=== PATIENT | female | born 1980 | race African-American/Black ===

== ENCOUNTER 2016-11-12 01:15 | Emergency (ER) | payer MEDICARE, MEDICAID ==
[~2016-11-12] VITALS: Ht 165.1 cm; Wt 65.0 kg
[~2016-11-12 01:15] MED LIST: AMLO5TAB4 PO; ESOM40CA PO; GABA-531 PO
[2016-11-12] MEDS ORDERED: SODIUM CHLORIDE 0.9% 1,000 ML IV ONE (02:35)
[2016-11-12 03:00] LABS: BASOPHILS % 0.7 % (0.0-2.0); EOSINOPHILS % 2.3 % (0.0-5.0); HEMATOCRIT. 28.1 % (36.0-48.0); LYMPHOCYTES % 39.8 % (20.0-50.0); MEAN CORPUSCULAR HEMOGLOBIN 26.3 pg (28.0-32.0); MONOCYTES % 7.8 % (2.0-8.0); NEUTROPHILS % 49.4 % (40.0-76.0); PLATELET 317 x1000/uL (130-400); RED BLOOD CELL COUNT 3.43 mill/uL (4.2-5.4); RED CELL DISTRIBUTION WIDTH 21.6 % (11.6-14.6)
[2016-11-12 03:09] LABS: CARBON DIOXIDE 25 mEq/L (21-32); CHLORIDE 112 mEq/L (98-107); ETHANOL BLOOD < 10 mg/dL
[2016-11-12 03:57] LABS: CLARITY URINE CLEAR (CLEAR); COLOR URINE YELLOW (YELLOW); GLUCOSE URINE TRACE (NEGATIVE); KETONES URINE NEGATIVE (NEGATIVE); LEUKOCYTE ESTERASE URINE NEGATIVE (NEGATIVE); NITRITE URINE NEGATIVE (NEGATIVE); OCCULT BLOOD URINE NEGATIVE (NEGATIVE); PH URINE 6.5 (4.5-8.0); PROTEIN URINE NEGATIVE (NEGATIVE); SPECIFIC GRAVITY URINE 1.024 (1.005-1.030)
[2016-11-12 04:22] LABS: *AMPHETAMINES SCREEN URINE NEGATIVE (NEGATIVE); *BARBITURATES SCREEN URINE NEGATIVE (NEGATIVE); *COCAINE SCREEN URINE NEGATIVE (NEGATIVE); CANNABINOID URINE SCREEN NEGATIVE (NEGATIVE); METHADONE URINE SCREEN NEGATIVE (NEGATIVE); PHENCYCLIDINE URINE SCREEN NEGATIVE (NEGATIVE)
[2016-11-12 04:30] LABS: *BENZODIAZEPINES SCREEN URINE PRESUMTIVE POSITIVE (NEGATIVE); OPIATES URINE SCREEN PRESUMTIVE POSITIVE (NEGATIVE)
[2016-11-12] MEDS ORDERED: KETOROLAC 30MG/ML VIAL IV ONE (08:00)
[2016-11-12 08:59] LABS: HCG SCREEN NEGATIVE
[2016-11-12 09:34] VITALS: BP 127/84
== END 2016-11-12 10:16 | disposition home or self-care (01) ==
LOC: ER 01:19
DX: T40.2X1A Poisoning by other opioids, accidental (unintentional), initial encounter (principal); F11.129 Opioid abuse with intoxication, unspecified; R53.83 Other fatigue; Y92.481 Parking lot as the place of occurrence of the external cause; R03.0 Elevated blood-pressure reading, without diagnosis of hypertension; M25.552 Pain in left hip; G89.29 Other chronic pain; D53.9 Nutritional anemia, unspecified; R94.31 Abnormal electrocardiogram [ECG] [EKG]; Z96.642 Presence of left artificial hip joint; Z88.0 Allergy status to penicillin; Z88.8 Allergy status to other drugs, medicaments and biological substances; Z98.890 Other specified postprocedural states
CPT/HCPCS: 36415; 51701; 73502; 80053; 80305; 80307; 80329; 81001; 84703; 85025; 93005; 96361; 96374; 99285; G0482; J1885; J7030

== ENCOUNTER 2017-02-18 15:21 | Emergency (ER) | payer MEDICARE, MEDICAID ==
[~2017-02-18] VITALS: Ht 154.9 cm; Wt 61.0 kg
[2017-02-18] MEDS ORDERED: IBUPROFEN 600MG TABLET PO ONE (20:30)
[2017-02-18] MEDS ORDERED: TRAMADOL 50MG TABLET PO ONE (22:15)
[2017-02-18] MEDS ORDERED: GENTAMICIN SULF 40MG/ML 2ML VIAL IM ONE (22:15)
[2017-02-18] MEDS ORDERED: AZITHROMYCIN 500 MG TABLET PO ONE (22:15)
[2017-02-18 22:30] VITALS: BP 147/82
[2017-02-18 23:12] LABS: CLARITY URINE CLEAR (CLEAR); COLOR URINE YELLOW (YELLOW); GLUCOSE URINE NEGATIVE (NEGATIVE); KETONES URINE TRACE (NEGATIVE); LEUKOCYTE ESTERASE URINE TRACE (NEGATIVE); NITRITE URINE NEGATIVE (NEGATIVE); OCCULT BLOOD URINE NEGATIVE (NEGATIVE); PH URINE 5.5 (4.5-8.0); PROTEIN URINE NEGATIVE (NEGATIVE); SPECIFIC GRAVITY URINE 1.043 (1.005-1.030)
== END 2017-02-18 23:10 | disposition home or self-care (01) ==
LOC: ER 21:30
DX: M25.552 Pain in left hip (principal); N39.0 Urinary tract infection, site not specified; Z20.2 Contact with and (suspected) exposure to infections with a predominantly sexual mode of transmission; Z88.0 Allergy status to penicillin; Z98.1 Arthrodesis status; W18.2XXA Fall in (into) shower or empty bathtub, initial encounter; Y93.E1 Activity, personal bathing and showering; Y92.012 Bathroom of single-family (private) house as the place of occurrence of the external cause
CPT/HCPCS: 72170; 81001; 81025; 87210; 96372; 99285; J1580; 87491; 87591

== ENCOUNTER 2017-06-30 12:58 | Emergency (ER) | payer MEDICARE, MEDICAID ==
[~2017-06-30] VITALS: Ht 165.1 cm; Wt 80.0 kg
[2017-06-30] MEDS ORDERED: DEXAMETHASONE 10 MG/ML VIAL IM ONE (15:30)
[2017-06-30] MEDS ORDERED: KETOROLAC 60MG/2ML VIAL IM ONE (15:30)
[2017-06-30] MEDS ORDERED: LORAZEPAM 1MG TABLET PO ONE (15:30)
[2017-06-30 15:34] VITALS: BP 144/98
== END 2017-06-30 15:34 | disposition left against medical advice (07) ==
LOC: ER 13:12
DX: M79.605 Pain in left leg (principal); I10 Essential (primary) hypertension; M25.552 Pain in left hip; Z96.642 Presence of left artificial hip joint; F16.10 Hallucinogen abuse, uncomplicated; Z88.0 Allergy status to penicillin; Z79.899 Other long term (current) drug therapy; Z83.3 Family history of diabetes mellitus
CPT/HCPCS: 96372; 99284; J1100; J1885

== ENCOUNTER 2017-07-11 12:55 | Emergency (ER) | payer MEDICARE, MEDICAID ==
[~2017-07-11] VITALS: Ht 160 cm; Wt 55.0 kg
[2017-07-11] MEDS ORDERED: NALOXONE HCL 1 MG/ML 2ML VIAL ONE (13:09)
[2017-07-11] MEDS ORDERED: NALOXONE HCL 1 MG/ML 2ML VIAL IV ONE (13:15)
[2017-07-11] MEDS ORDERED: SODIUM CHLORIDE 0.9% 500 ML IV ONE (16:00)
[2017-07-11 16:29] LABS: BASOPHILS % 1.6 % (0.0-2.0); EOSINOPHILS % 1.6 % (0.0-5.0); HEMATOCRIT. 38.2 % (36.0-48.0); HEMOGLOBIN. 12.1 g/dL (12.0-16.0); LYMPHOCYTES % 52.8 % (20.0-50.0); MEAN CORPUSCULAR HEMOGLOBIN 29.5 pg (28.0-32.0); MEAN CORPUSCULAR VOLUME 93.3 fL (81.0-99.0); MEAN PLATELET VOLUME 8.8 fl (7.4-10.4); MONOCYTES % 8.6 % (2.0-8.0); NEUTROPHILS % 35.4 % (40.0-76.0); PLATELET 295 x1000/uL (130-400); RED CELL DISTRIBUTION WIDTH 19.8 % (11.6-14.6)
[2017-07-11 16:36] LABS: INR 1.1
[2017-07-11 16:43] LABS: CARBON DIOXIDE 24 mEq/L (21-32); CHLORIDE 108 mEq/L (98-107); TROPONIN I < 0.02 ng/mL (0.00-0.04)
[2017-07-11 18:16] LABS: HCG SCREEN NEGATIVE
[2017-07-11 20:38] VITALS: BP 130/81
== END 2017-07-11 20:40 | disposition home or self-care (01) ==
LOC: ER 13:10
DX: T40.0X1A Poisoning by opium, accidental (unintentional), initial encounter (principal); E87.8 Other disorders of electrolyte and fluid balance, not elsewhere classified; E86.0 Dehydration; D70.9 Neutropenia, unspecified; R41.82 Altered mental status, unspecified; I10 Essential (primary) hypertension; G35 Multiple sclerosis; F16.10 Hallucinogen abuse, uncomplicated; D64.9 Anemia, unspecified; Z88.0 Allergy status to penicillin; Z96.642 Presence of left artificial hip joint; Z79.899 Other long term (current) drug therapy; Y92.89 Other specified places as the place of occurrence of the external cause
CPT/HCPCS: 36415; 70450; 71045; 80053; 82962; 83036; 83880; 84484; 84703; 85025; 85610; 93005; 96361; 96374; 99285; J2310; J7040

== ENCOUNTER 2017-10-11 03:14 | Emergency (ER) | payer MEDICARE, MEDICAID ==
[~2017-10-11] VITALS: Ht 149.9 cm; Wt 61.0 kg
[2017-10-11] MEDS ORDERED: ACETAMINOPHEN 325MG TABLET PO ONE (04:15)
[2017-10-11 04:52] LABS: BASOPHILS % 1.3 % (0.0-2.0); EOSINOPHILS % 0.6 % (0.0-5.0); HEMATOCRIT. 36.4 % (36.0-48.0); HEMOGLOBIN. 12.3 g/dL (12.0-16.0); LYMPHOCYTES % 40.7 % (20.0-50.0); MEAN CORPUSCULAR HEMOGLOBIN 32.1 pg (28.0-32.0); MEAN CORPUSCULAR VOLUME 94.6 fL (81.0-99.0); MEAN PLATELET VOLUME 8.3 fl (7.4-10.4); MONOCYTES % 7.6 % (2.0-8.0); NEUTROPHILS % 49.8 % (40.0-76.0); PLATELET 446 x1000/uL (130-400); RED BLOOD CELL COUNT 3.85 mill/uL (4.2-5.4); RED CELL DISTRIBUTION WIDTH 17.6 % (11.6-14.6)
[2017-10-11 04:56] LABS: CHLORIDE 106 mEq/L (98-107)
[2017-10-11 05:00] LABS: ETHANOL BLOOD < 10 mg/dL
[2017-10-11] MEDS ORDERED: IBUPROFEN 600MG TABLET PO ONE (10:15)
[2017-10-11 11:48] LABS: CLARITY URINE CLOUDY (CLEAR); COLOR URINE DARK YELLOW (YELLOW); KETONES URINE NEGATIVE (NEGATIVE); LEUKOCYTE ESTERASE URINE NEGATIVE (NEGATIVE); NITRITE URINE NEGATIVE (NEGATIVE); OCCULT BLOOD URINE NEGATIVE (NEGATIVE); PROTEIN URINE NEGATIVE (NEGATIVE); SPECIFIC GRAVITY URINE 1.034 (1.005-1.030); UROBILINOGEN URINE 0.2 E.U./dL (0.2-1.0)
[2017-10-11 12:30] LABS: *AMPHETAMINES SCREEN URINE NEGATIVE (NEGATIVE); *BARBITURATES SCREEN URINE NEGATIVE (NEGATIVE); *COCAINE SCREEN URINE NEGATIVE (NEGATIVE); METHADONE URINE SCREEN NEGATIVE (NEGATIVE); PHENCYCLIDINE URINE SCREEN NEGATIVE (NEGATIVE)
[2017-10-11 12:31] LABS: CANNABINOID URINE SCREEN NEGATIVE (NEGATIVE)
[2017-10-11 12:34] LABS: *BENZODIAZEPINES SCREEN URINE PRESUMTIVE POSITIVE (NEGATIVE); OPIATES URINE SCREEN PRESUMTIVE POSITIVE (NEGATIVE)
[2017-10-11 15:00] VITALS: BP 130/80
== END 2017-10-11 17:59 | disposition home or self-care (01) ==
LOC: ER 03:14
DX: G89.29 Other chronic pain (principal); F22 Delusional disorders; I10 Essential (primary) hypertension; D64.9 Anemia, unspecified; F19.10 Other psychoactive substance abuse, uncomplicated; Z96.649 Presence of unspecified artificial hip joint; Z88.0 Allergy status to penicillin
CPT/HCPCS: 36415; 80053; 80305; 81003; 81025; 85025; 99284; G0482

== ENCOUNTER 2017-10-22 08:51 | Emergency (ER) | payer MEDICARE, MEDICAID ==
[~2017-10-22] VITALS: Ht 165.1 cm; Wt 63.0 kg
[2017-10-22] MEDS ORDERED: IBUPROFEN 800MG TABLET PO ONE (09:45)
[2017-10-22 10:00] LABS: HEMATOCRIT. 37.6 % (36.0-48.0); HEMOGLOBIN. 12.4 g/dL (12.0-16.0); MEAN CORPUSCULAR HEMOGLOBIN 31.5 pg (28.0-32.0); MEAN CORPUSCULAR VOLUME 95.4 fL (81.0-99.0); RED BLOOD CELL COUNT 3.94 mill/uL (4.2-5.4); RED CELL DISTRIBUTION WIDTH 16.1 % (11.6-14.6)
[2017-10-22] MEDS ORDERED: ACETAMINOPHEN 325MG TABLET PO ONE (10:00)
[2017-10-22 10:05] LABS: CHLORIDE 107 mEq/L (98-107)
[2017-10-22 10:19] LABS: PLATELET ESTIMATE NORMAL
[2017-10-22 10:20] LABS: PLATELET 237 x1000/uL (130-400)
[2017-10-22 10:49] LABS: *AMPHETAMINES SCREEN URINE NEGATIVE (NEGATIVE); *BARBITURATES SCREEN URINE NEGATIVE (NEGATIVE); *COCAINE SCREEN URINE NEGATIVE (NEGATIVE)
[2017-10-22 10:50] LABS: CANNABINOID URINE SCREEN NEGATIVE (NEGATIVE); METHADONE URINE SCREEN NEGATIVE (NEGATIVE); PHENCYCLIDINE URINE SCREEN NEGATIVE (NEGATIVE)
[2017-10-22 10:53] LABS: *BENZODIAZEPINES SCREEN URINE PRESUMTIVE POSITIVE (NEGATIVE); OPIATES URINE SCREEN PRESUMTIVE POSITIVE (NEGATIVE)
[2017-10-22] MEDS ORDERED: LORAZEPAM 0.5MG TABLET PO ONE (11:15)
[2017-10-22 12:00] VITALS: BP 151/93
== END 2017-10-22 12:27 | disposition left against medical advice (07) ==
LOC: ER 09:10
DX: F22 Delusional disorders (principal); M25.552 Pain in left hip; I10 Essential (primary) hypertension; F16.10 Hallucinogen abuse, uncomplicated; Z96.649 Presence of unspecified artificial hip joint; Z88.0 Allergy status to penicillin; W18.30XA Fall on same level, unspecified, initial encounter; Y93.89 Activity, other specified; Y92.89 Other specified places as the place of occurrence of the external cause; Y99.8 Other external cause status
CPT/HCPCS: 36415; 73502; 80048; 80305; 81025; 85025; 99285

== ENCOUNTER 2017-10-23 01:41 | Emergency (ER) | payer MEDICARE, MEDICAID ==
[~2017-10-23] VITALS: Ht 160 cm; Wt 59.0 kg
[2017-10-23 07:35] LABS: EOSINOPHILS % 1.3 % (0.0-5.0); HEMATOCRIT. 37.5 % (36.0-48.0); HEMOGLOBIN. 12.5 g/dL (12.0-16.0); LYMPHOCYTES % 30.4 % (20.0-50.0); MEAN CORPUSCULAR HEMOGLOBIN 31.9 pg (28.0-32.0); MEAN CORPUSCULAR VOLUME 95.5 fL (81.0-99.0); MEAN PLATELET VOLUME 7.8 fl (7.4-10.4); MONOCYTES % 10.1 % (2.0-8.0); NEUTROPHILS % 57.2 % (40.0-76.0); PLATELET 278 x1000/uL (130-400); RED BLOOD CELL COUNT 3.92 mill/uL (4.2-5.4)
[2017-10-23 07:37] LABS: CHLORIDE 104 mEq/L (98-107)
[2017-10-23 07:38] LABS: CLARITY URINE CLEAR (CLEAR); COLOR URINE YELLOW (YELLOW); KETONES URINE 1+ (NEGATIVE); LEUKOCYTE ESTERASE URINE NEGATIVE (NEGATIVE); NITRITE URINE NEGATIVE (NEGATIVE); OCCULT BLOOD URINE NEGATIVE (NEGATIVE); PROTEIN URINE NEGATIVE (NEGATIVE)
[2017-10-23 07:44] LABS: ETHANOL BLOOD < 10 mg/dL
[2017-10-23 07:54] LABS: *AMPHETAMINES SCREEN URINE NEGATIVE (NEGATIVE)
[2017-10-23 07:55] LABS: *BARBITURATES SCREEN URINE NEGATIVE (NEGATIVE); *COCAINE SCREEN URINE NEGATIVE (NEGATIVE); METHADONE URINE SCREEN NEGATIVE (NEGATIVE)
[2017-10-23 07:56] LABS: CANNABINOID URINE SCREEN NEGATIVE (NEGATIVE); PHENCYCLIDINE URINE SCREEN NEGATIVE (NEGATIVE)
[2017-10-23 08:09] LABS: *BENZODIAZEPINES SCREEN URINE PRESUMTIVE POSITIVE (NEGATIVE); OPIATES URINE SCREEN PRESUMTIVE POSITIVE (NEGATIVE)
[2017-10-23] MEDS ORDERED: IBUPROFEN 600MG TABLET PO ONE (09:00)
[2017-10-23] MEDS ORDERED: LORAZEPAM 1MG TABLET PO ONE (09:00)
[2017-10-23 09:45] VITALS: BP 144/88
[2017-10-23] MEDS ORDERED: HYDROCODONE/ACETAMINOPHEN 5/325MG TABLET PO ONE (10:30)
== END 2017-10-23 11:16 | disposition left against medical advice (07) ==
LOC: ER 01:41
DX: F20.0 Paranoid schizophrenia (principal); I10 Essential (primary) hypertension; Z88.0 Allergy status to penicillin; Z83.3 Family history of diabetes mellitus; Z79.899 Other long term (current) drug therapy
CPT/HCPCS: 36415; 80053; 80305; 80307; 80329; 81003; 82962; 85025; 93005; 99285; G0482

== ENCOUNTER 2017-10-24 04:12 | Emergency (ER) | payer MEDICARE, MEDICAID ==
[~2017-10-24] VITALS: Ht 157.5 cm; Wt 54.4 kg
[2017-10-24 06:39] LABS: BASOPHILS % 1.4 % (0.0-2.0); EOSINOPHILS % 0.9 % (0.0-5.0); HEMATOCRIT. 39.1 % (36.0-48.0); HEMOGLOBIN. 13.2 g/dL (12.0-16.0); LYMPHOCYTES % 45.8 % (20.0-50.0); MEAN CORPUSCULAR VOLUME 94.7 fL (81.0-99.0); MEAN PLATELET VOLUME 8.2 fl (7.4-10.4); MONOCYTES % 8.2 % (2.0-8.0); NEUTROPHILS % 43.7 % (40.0-76.0); PLATELET 313 x1000/uL (130-400); RED BLOOD CELL COUNT 4.12 mill/uL (4.2-5.4); RED CELL DISTRIBUTION WIDTH 16.2 % (11.6-14.6)
[2017-10-24 06:46] LABS: CHLORIDE 105 mEq/L (98-107)
[2017-10-24 06:49] LABS: ETHANOL BLOOD < 10 mg/dL
[2017-10-24 07:34] VITALS: BP 123/64
== END 2017-10-24 07:40 | disposition left against medical advice (07) ==
LOC: ER 04:12
DX: Z00.8 Encounter for other general examination (principal); Z79.899 Other long term (current) drug therapy; Z53.21 Procedure and treatment not carried out due to patient leaving prior to being seen by health care provider
CPT/HCPCS: 36415; 80053; 80307; 80329; 85025; G0482; 99281

== ENCOUNTER 2018-04-26 13:04 | Inpatient (IN) | payer MEDICARE, MEDICAID ==
[~2018-04-26] VITALS: Ht 154.9 cm; Wt 69.9 kg
[2018-04-26] MEDS ORDERED: MORPHINE SULFATE 4 MG/ML CPJ (NOT FOR IM USE) IV STA (13:40)
[2018-04-26] MEDS ORDERED: ONDANSETRON HCL 4MG/2ML INJ IV STA (13:40)
[2018-04-26] MEDS ORDERED: SODIUM CHLORIDE 0.9% 1,000 ML IV ONE (13:40)
[2018-04-26 14:46] LABS: BASOPHILS % 1.6 % (0.0-2.0); EOSINOPHILS % 0.5 % (0.0-5.0); HEMATOCRIT. 36.4 % (36.0-48.0); LYMPHOCYTES % 32.3 % (20.0-50.0); MEAN CORPUSCULAR HEMOGLOBIN 30.4 pg (28.0-32.0); MEAN CORPUSCULAR VOLUME 92.3 fL (81.0-99.0); MEAN PLATELET VOLUME 8.8 fl (7.4-10.4); MONOCYTES % 6.2 % (2.0-8.0); NEUTROPHILS % 59.4 % (40.0-76.0); PLATELET 327 x1000/uL (130-400); RED BLOOD CELL COUNT 3.94 mill/uL (4.2-5.4); RED CELL DISTRIBUTION WIDTH 16.3 % (11.6-14.6)
[2018-04-26 14:55] LABS: PARTIAL THROMBOPLASTIN TIME 28.1 sec (23.4-31.0)
[2018-04-26 14:57] LABS: CHLORIDE 109 mEq/L (98-107)
[2018-04-26 15:10] LABS: HCG SCREEN NEGATIVE
[2018-04-26] MEDS ORDERED: ASPIRIN 81MG TABLET PO ONE (16:00)
[2018-04-26] MEDS ORDERED: MORPHINE SULFATE 4 MG/ML CPJ (NOT FOR IM USE) IV ONE (16:00)
[2018-04-26] MEDS: MORPHINE SULFATE 4 MG/ML CPJ (NOT FOR IM USE) IV PRN (21:54)
[2018-04-26] MEDS ORDERED: CLONIDINE 0.1MG TABLET PO PRN (23:30)
[2018-04-26] MEDS ORDERED: IPRATROPIUM/ALBUTEROL 0.5-3(2.5)MG/3ML NEB INH PRN (23:30)
[2018-04-26] MEDS ORDERED: ACETAMINOPHEN 325MG TABLET PO PRN (23:30)
[2018-04-26] MEDS ORDERED: HYDROMORPHONE HCL/PF 2MG/ML CPJ IV PRN (23:30)
[2018-04-27] VITALS (7 sets, daily range): BP systolic 104–132; BP diastolic 51–81
[2018-04-27] MEDS ORDERED: CHOL100062 PO (02:13)
[2018-04-27] MEDS ORDERED: HALO5TAB PO (02:13)
[2018-04-27] MEDS ORDERED: PREG100C PO (02:13)
[2018-04-27] MEDS ORDERED: ASPI-1158 PO (02:13)
[2018-04-27] MEDS ORDERED: OMEP20CA10 PO (02:19)
[2018-04-27] MEDS ORDERED: BACL-141 PO (02:19)
[2018-04-27] MEDS ORDERED: ALBU18HF2 IH (02:19)
[2018-04-27] MEDS ORDERED: DICL75TA5 PO (02:19)
[2018-04-27] MEDS ORDERED: HYDR-3992 PO (02:19)
[2018-04-27] MEDS: MORPHINE SULFATE 4 MG/ML CPJ (NOT FOR IM USE) IV PRN ×5 (02:42→22:05)
[2018-04-27] MEDS: SODIUM CHLORIDE 0.9% 1,000 ML IV SCH ×2 (06:08→19:10)
[2018-04-27 06:50] LABS: CREATINE KINASE 261 IU/L (26-192); CREATINE KINASE MB FRACTION 1.8 ng/mL (0.5-3.6)
[2018-04-27] MEDS: ENOXAPARIN 40MG/0.4ML SYR SUBCUT SCH (07:59)
[2018-04-27] MEDS: ONDANSETRON HCL 4MG/2ML INJ IV PRN ×4 (08:00→22:04)
[2018-04-27] MEDS: HYDROCODONE/ACETAMINOPHEN 10/325MG TABLET PO PRN ×3 (10:23→20:02)
[2018-04-27 14:54] LABS: CLARITY URINE CLEAR (CLEAR); COLOR URINE YELLOW (YELLOW); KETONES URINE TRACE (NEGATIVE); LEUKOCYTE ESTERASE URINE NEGATIVE (NEGATIVE); NITRITE URINE NEGATIVE (NEGATIVE); OCCULT BLOOD URINE NEGATIVE (NEGATIVE); PH URINE 5.5 (4.5-8.0); PROTEIN URINE NEGATIVE (NEGATIVE); SPECIFIC GRAVITY URINE 1.027 (1.005-1.030); UROBILINOGEN URINE 0.2 E.U./dL (0.2-1.0)
[2018-04-27 15:14] LABS: *AMPHETAMINES SCREEN URINE NEGATIVE (NEGATIVE); *BARBITURATES SCREEN URINE NEGATIVE (NEGATIVE); *BENZODIAZEPINES SCREEN URINE PRESUMTIVE POSITIVE (NEGATIVE); *COCAINE SCREEN URINE NEGATIVE (NEGATIVE); CANNABINOID URINE SCREEN NEGATIVE (NEGATIVE); METHADONE URINE SCREEN NEGATIVE (NEGATIVE); OPIATES URINE SCREEN PRESUMTIVE POSITIVE (NEGATIVE); PHENCYCLIDINE URINE SCREEN NEGATIVE (NEGATIVE)
[2018-04-27] MEDS: POLYETHYLENE GLYCOL 3350 (17GM) 1 DOSE PACK PO SCH (20:01)
[2018-04-28] VITALS: BP 130/79
[2018-04-28] MEDS ORDERED: DEXTROSE 50% WATER 50ML SYRINGE IV PRN (02:00)
[2018-04-28] MEDS: MORPHINE SULFATE 4 MG/ML CPJ (NOT FOR IM USE) IV PRN ×6 (02:01→23:38)
[2018-04-28] MEDS: ONDANSETRON HCL 4MG/2ML INJ IV PRN ×5 (02:01→23:38)
[2018-04-28] MEDS: HYDROCODONE/ACETAMINOPHEN 10/325MG TABLET PO PRN ×5 (02:53→20:57)
[2018-04-28 03:00] LABS: CREATINE KINASE 220 IU/L (26-192); CREATINE KINASE MB FRACTION 1.7 ng/mL (0.5-3.6)
[2018-04-28 04:00] VITALS: BP 128/71
[2018-04-28] MEDS: PANTOPRAZOLE 40MG DR TABLET PO SCH (05:58)
[2018-04-28] MEDS: BLOOD SUGAR DIAGNOSTIC STRIP TEST SCH ×4 (06:44→20:54)
[2018-04-28] MEDS: INSULIN LISPRO 100 UNITS/ML SUBCUT SCH ×4 (06:44→20:55)
[2018-04-28 07:47] LABS: EOSINOPHILS % 2.8 % (0.0-5.0); HEMOGLOBIN. 11.1 g/dL (12.0-16.0); MEAN CORPUSCULAR HEMOGLOBIN 30.1 pg (28.0-32.0); MEAN CORPUSCULAR VOLUME 92.5 fL (81.0-99.0); MEAN PLATELET VOLUME 8.7 fl (7.4-10.4); MONOCYTES % 8.9 % (2.0-8.0); NEUTROPHILS % 34.3 % (40.0-76.0); PLATELET 287 x1000/uL (130-400); RED BLOOD CELL COUNT 3.68 mill/uL (4.2-5.4); RED CELL DISTRIBUTION WIDTH 16.1 % (11.6-14.6)
[2018-04-28 08:16] LABS: CHLORIDE 107 mEq/L (98-107)
[2018-04-28] MEDS: DOCUSATE SODIUM 100MG CAPSULE PO SCH ×2 (08:33→16:47)
[2018-04-28] MEDS: ENOXAPARIN 40MG/0.4ML SYR SUBCUT SCH (08:33)
[2018-04-28 12:00] VITALS: BP 120/80
[2018-04-28] MEDS ORDERED: MORPHINE SULFATE 4 MG/ML CPJ (NOT FOR IM USE) IV PRN (13:45)
[2018-04-28] MEDS: SODIUM CHLORIDE 0.9% 1,000 ML IV SCH (13:50)
[2018-04-28] MEDS ORDERED: LACTULOSE 20G/30ML UDC PO PRN (14:44)
[2018-04-28] MEDS ORDERED: BISACODYL 10MG SUPP PR PRN (14:45)
[2018-04-28 16:00] VITALS: BP 142/92
[2018-04-28 20:00] VITALS: BP 119/80
[2018-04-28] MEDS: POLYETHYLENE GLYCOL 3350 (17GM) 1 DOSE PACK PO SCH (20:57)
[2018-04-28] MEDS: ALPRAZOLAM 0.5 MG TABLET PO PRN (21:12)
[2018-04-29] VITALS: BP 128/76
[2018-04-29] MEDS: HYDROCODONE/ACETAMINOPHEN 10/325MG TABLET PO PRN ×2 (03:08→08:36)
[2018-04-29 04:00] VITALS: BP 106/67
[2018-04-29] MEDS: SODIUM CHLORIDE 0.9% 1,000 ML IV SCH (04:30)
[2018-04-29] MEDS: ONDANSETRON HCL 4MG/2ML INJ IV PRN (04:39)
[2018-04-29] MEDS: MORPHINE SULFATE 4 MG/ML CPJ (NOT FOR IM USE) IV PRN (04:40)
[2018-04-29] MEDS: BLOOD SUGAR DIAGNOSTIC STRIP TEST SCH (06:03)
[2018-04-29] MEDS: ALPRAZOLAM 0.5 MG TABLET PO PRN (06:04)
[2018-04-29] MEDS: PANTOPRAZOLE 40MG DR TABLET PO SCH (06:04)
[2018-04-29] MEDS: INSULIN LISPRO 100 UNITS/ML SUBCUT SCH (06:07)
[2018-04-29] MEDS: ENOXAPARIN 40MG/0.4ML SYR SUBCUT SCH (08:35)
[2018-04-29] MEDS: DOCUSATE SODIUM 100MG CAPSULE PO SCH (08:37)
[2018-04-29 11:54] VITALS: BP 106/67
[2018-04-29 12:00] VITALS: BP 116/81
== END 2018-04-29 12:30 | disposition home or self-care (01) | DRG 313 ==
LOC: ER 13:04 → 5WST 16:16 → ENRESERV 04-27 00:31
PROVIDERS: ADMIT Internal Medicine Nephrology; ATTEND Internal Medicine Nephrology
DX: R07.89 Other chest pain (principal); M62.82 Rhabdomyolysis; W01.0XXA Fall on same level from slipping, tripping and stumbling without subsequent striking against object, initial encounter; F20.9 Schizophrenia, unspecified; S30.0XXA Contusion of lower back and pelvis, initial encounter; R26.9 Unspecified abnormalities of gait and mobility; R41.81 Age-related cognitive decline; G89.4 Chronic pain syndrome; E11.9 Type 2 diabetes mellitus without complications; Z96.642 Presence of left artificial hip joint; Z96.659 Presence of unspecified artificial knee joint; F32.9 Major depressive disorder, single episode, unspecified; I10 Essential (primary) hypertension; Y92.000 Kitchen of unspecified non-institutional (private) residence as the place of occurrence of the external cause; Z82.49 Family history of ischemic heart disease and other diseases of the circulatory system; Z83.3 Family history of diabetes mellitus; Y93.89 Activity, other specified; Y99.8 Other external cause status; Z88.0 Allergy status to penicillin; Z79.899 Other long term (current) drug therapy; Z87.828 Personal history of other (healed) physical injury and trauma
CPT/HCPCS: 36415; 71045; 72192; 73502; 73552; 73565; 80048; 80305; 82550; 82553; 82962; 84484; 84703; 93005; 97162; 97165; 99285; J1650; J2270; J2405; J7030

== ENCOUNTER 2018-12-11 07:48 | Emergency (ER) | payer MEDICARE, MEDICAID ==
[~2018-12-11] VITALS: Ht 162.6 cm; Wt 68.0 kg
[~2018-12-11 07:48] MED LIST changes: +ALBU18HF2 IH; +ASPI-1158 PO; +BACL-141 PO; -ESOM40CA PO; +OMEP20CA5 PO
[2018-12-11] MEDS ORDERED: KETOROLAC 30MG/ML VIAL IV STA (08:56)
[2018-12-11] MEDS ORDERED: SODIUM CHLORIDE 0.9% 1,000 ML IV ONE (08:56)
[2018-12-11 09:26] LABS: BASOPHILS % 0.8 % (0.0-2.0); EOSINOPHILS % 0.5 % (0.0-5.0); HEMATOCRIT. 33.6 % (36.0-48.0); HEMOGLOBIN. 10.9 g/dL (12.0-16.0); LYMPHOCYTES % 43.3 % (20.0-50.0); MEAN CORPUSCULAR HEMOGLOBIN 28.9 pg (28.0-32.0); MEAN CORPUSCULAR VOLUME 89.1 fL (81.0-99.0); MEAN PLATELET VOLUME 8.6 fl (7.4-10.4); MONOCYTES % 7.6 % (2.0-8.0); NEUTROPHILS % 47.8 % (40.0-76.0); PLATELET 251 x1000/uL (130-400); RED BLOOD CELL COUNT 3.77 mill/uL (4.2-5.4); RED CELL DISTRIBUTION WIDTH 18.9 % (11.6-14.6)
[2018-12-11 09:32] LABS: CHLORIDE 109 mEq/L (98-107)
[2018-12-11 09:42] LABS: ETHANOL BLOOD < 10 mg/dL
[2018-12-11 09:51] LABS: HCG SCREEN NEGATIVE
[2018-12-11 13:12] LABS: CLARITY URINE CLOUDY (CLEAR); COLOR URINE DARK YELLOW (YELLOW); KETONES URINE NEGATIVE (NEGATIVE); LEUKOCYTE ESTERASE URINE NEGATIVE (NEGATIVE); NITRITE URINE NEGATIVE (NEGATIVE); OCCULT BLOOD URINE 2+ (NEGATIVE); PROTEIN URINE TRACE (NEGATIVE); SPECIFIC GRAVITY URINE 1.032 (1.005-1.030); UROBILINOGEN URINE 0.2 E.U./dL (0.2-1.0)
[2018-12-11] MEDS ORDERED: NALOXONE HCL 0.4 MG/ML 1ML VIAL IV ONE (13:15)
[2018-12-11 13:43] LABS: *AMPHETAMINES SCREEN URINE NEGATIVE (NEGATIVE); *BARBITURATES SCREEN URINE NEGATIVE (NEGATIVE)
[2018-12-11 13:44] LABS: *COCAINE SCREEN URINE NEGATIVE (NEGATIVE); CANNABINOID URINE SCREEN NEGATIVE (NEGATIVE); METHADONE URINE SCREEN NEGATIVE (NEGATIVE); PHENCYCLIDINE URINE SCREEN NEGATIVE (NEGATIVE)
[2018-12-11 13:45] LABS: *BENZODIAZEPINES SCREEN URINE PRESUMTIVE POSITIVE (NEGATIVE); OPIATES URINE SCREEN PRESUMTIVE POSITIVE (NEGATIVE)
[2018-12-12] MEDS ORDERED: ACETAMINOPHEN 325MG TABLET PO ONE (10:00)
[2018-12-12 16:06] VITALS: BP 116/76
== END 2018-12-12 16:07 | disposition home or self-care (01) ==
LOC: ER 07:48
DX: T40.2X2A Poisoning by other opioids, intentional self-harm, initial encounter (principal); F11.10 Opioid abuse, uncomplicated; M25.552 Pain in left hip; G89.29 Other chronic pain; R03.0 Elevated blood-pressure reading, without diagnosis of hypertension; Y92.098 Other place in other non-institutional residence as the place of occurrence of the external cause; Z96.642 Presence of left artificial hip joint
CPT/HCPCS: 36415; 73502; 80053; 80305; 80307; 80320; 80329; 81003; 84703; 85025; 93005; 96374; 96375; 99284; J1885; J2310; J7030; G0480

== ENCOUNTER 2018-12-18 04:32 | Emergency (ER) | payer MEDICARE, MEDICAID ==
[~2018-12-18] VITALS: Ht 152.4 cm; Wt 57.0 kg
[2018-12-18 04:48] VITALS: BP 125/71
[2018-12-18] MEDS ORDERED: IBUPROFEN 600MG TABLET PO ONE (05:15)
[2018-12-18] MEDS ORDERED: LORAZEPAM 0.5MG TABLET PO ONE (05:15)
[2018-12-18 05:28] LABS: BASOPHILS % 1.7 % (0.0-2.0); EOSINOPHILS % 0.8 % (0.0-5.0); HEMATOCRIT. 35.8 % (36.0-48.0); HEMOGLOBIN. 11.7 g/dL (12.0-16.0); LYMPHOCYTES % 57.8 % (20.0-50.0); MEAN CORPUSCULAR HEMOGLOBIN 28.7 pg (28.0-32.0); MEAN CORPUSCULAR VOLUME 88.3 fL (81.0-99.0); MEAN PLATELET VOLUME 8.3 fl (7.4-10.4); MONOCYTES % 7.6 % (2.0-8.0); NEUTROPHILS % 32.1 % (40.0-76.0); PLATELET 325 x1000/uL (130-400); RED BLOOD CELL COUNT 4.06 mill/uL (4.2-5.4); RED CELL DISTRIBUTION WIDTH 18.8 % (11.6-14.6)
[2018-12-18 05:36] LABS: CHLORIDE 110 mEq/L (98-107)
[2018-12-18 05:38] LABS: HCG SCREEN NEGATIVE
[2018-12-18 05:39] LABS: ETHANOL BLOOD < 10 mg/dL
[2018-12-18 06:10] LABS: *AMPHETAMINES SCREEN URINE NEGATIVE (NEGATIVE); *BARBITURATES SCREEN URINE NEGATIVE (NEGATIVE); *BENZODIAZEPINES SCREEN URINE NEGATIVE (NEGATIVE); *COCAINE SCREEN URINE NEGATIVE (NEGATIVE); CANNABINOID URINE SCREEN NEGATIVE (NEGATIVE); METHADONE URINE SCREEN NEGATIVE (NEGATIVE); PHENCYCLIDINE URINE SCREEN NEGATIVE (NEGATIVE)
[2018-12-18 06:11] LABS: OPIATES URINE SCREEN PRESUMTIVE POSITIVE (NEGATIVE)
== END 2018-12-18 15:10 | disposition home or self-care (01) ==
LOC: ER 04:32
DX: M25.552 Pain in left hip (principal); T74.11XA Adult physical abuse, confirmed, initial encounter; F41.9 Anxiety disorder, unspecified; F43.10 Post-traumatic stress disorder, unspecified; E11.9 Type 2 diabetes mellitus without complications; I10 Essential (primary) hypertension; F20.9 Schizophrenia, unspecified; Z88.0 Allergy status to penicillin; Z79.899 Other long term (current) drug therapy; Z96.649 Presence of unspecified artificial hip joint
CPT/HCPCS: 36415; 80305; 80320; 81025; 82962; 84703; 99283; G0480

== ENCOUNTER 2018-12-29 09:19 | Emergency (ER) | payer MEDICARE, MEDICAID ==
[~2018-12-29] VITALS: Ht 152.4 cm; Wt 59.0 kg
[2018-12-29] MEDS ORDERED: ONDANSETRON HCL 4MG/2ML INJ IV STA (10:14)
[2018-12-29] MEDS ORDERED: DIPHENHYDRAMINE 50MG/ML VIAL IV ONE (10:15)
[2018-12-29] MEDS ORDERED: FAMOTIDINE 20MG/2ML VIAL IV ONE (10:15)
[2018-12-29 10:56] LABS: BASOPHILS % 0.9 % (0.0-2.0); EOSINOPHILS % 0.4 % (0.0-5.0); HEMATOCRIT. 39.8 % (36.0-48.0); HEMOGLOBIN. 12.8 g/dL (12.0-16.0); LYMPHOCYTES % 36.6 % (20.0-50.0); MEAN CORPUSCULAR HEMOGLOBIN 28.3 pg (28.0-32.0); MEAN CORPUSCULAR VOLUME 88.3 fL (81.0-99.0); MONOCYTES % 6.4 % (2.0-8.0); NEUTROPHILS % 55.7 % (40.0-76.0); RED CELL DISTRIBUTION WIDTH 17.6 % (11.6-14.6)
[2018-12-29 10:57] LABS: CHLORIDE 108 mEq/L (98-107)
[2018-12-29 11:51] LABS: CLARITY URINE CLEAR (CLEAR); COLOR URINE YELLOW (YELLOW); KETONES URINE TRACE (NEGATIVE); LEUKOCYTE ESTERASE URINE NEGATIVE (NEGATIVE); NITRITE URINE NEGATIVE (NEGATIVE); OCCULT BLOOD URINE NEGATIVE (NEGATIVE); PH URINE 6.5 (4.5-8.0); PROTEIN URINE NEGATIVE (NEGATIVE); SPECIFIC GRAVITY URINE 1.024 (1.005-1.030)
[2018-12-29 13:31] VITALS: BP 118/72
== END 2018-12-29 13:41 | disposition home or self-care (01) ==
LOC: ER 09:19
DX: R10.33 Periumbilical pain (principal); R11.0 Nausea; E11.9 Type 2 diabetes mellitus without complications; I10 Essential (primary) hypertension; F20.9 Schizophrenia, unspecified; Z98.890 Other specified postprocedural states; Z96.649 Presence of unspecified artificial hip joint; Z88.0 Allergy status to penicillin; Z79.82 Long term (current) use of aspirin; Z79.899 Other long term (current) drug therapy
CPT/HCPCS: 36415; 74176; 80053; 81003; 81025; 83690; 85025; 93005; 96374; 96375; 99284; J1200; J2405; J3490

== ENCOUNTER 2019-02-13 21:17 | Emergency (ER) | payer MEDICARE, MEDICAID ==
[~2019-02-13] VITALS: Ht 165.1 cm; Wt 47.0 kg
[2019-02-13] MEDS ORDERED: SODIUM CHLORIDE 0.9% 1,000 ML IV ONE (21:37)
[2019-02-13 23:29] LABS: BASOPHILS % 0.5 % (0.0-2.0); EOSINOPHILS % 1.3 % (0.0-5.0); HEMOGLOBIN. 10.2 g/dL (12.0-16.0); LYMPHOCYTES % 33.3 % (20.0-50.0); MEAN CORPUSCULAR HEMOGLOBIN 27.5 pg (28.0-32.0); MEAN CORPUSCULAR VOLUME 86.4 fL (81.0-99.0); MEAN PLATELET VOLUME 8.6 fl (7.4-10.4); MONOCYTES % 7.4 % (2.0-8.0); NEUTROPHILS % 57.5 % (40.0-76.0); PLATELET 246 x1000/uL (130-400); RED CELL DISTRIBUTION WIDTH 18.1 % (11.6-14.6)
[2019-02-13 23:35] LABS: CLARITY URINE TURBID (CLEAR); KETONES URINE 2+ (NEGATIVE); LEUKOCYTE ESTERASE URINE 3+ (NEGATIVE); NITRITE URINE POSITIVE (NEGATIVE); OCCULT BLOOD URINE 3+ (NEGATIVE); PROTEIN URINE 3+ (NEGATIVE); SPECIFIC GRAVITY URINE 1.036 (1.005-1.030)
[2019-02-13 23:37] LABS: CHLORIDE 107 mEq/L (98-107)
[2019-02-13 23:40] LABS: COLOR URINE BLOODY (YELLOW)
[2019-02-13 23:41] LABS: ETHANOL BLOOD < 10 mg/dL
[2019-02-14 00:03] LABS: *AMPHETAMINES SCREEN URINE NEGATIVE (NEGATIVE); *BARBITURATES SCREEN URINE NEGATIVE (NEGATIVE); *BENZODIAZEPINES SCREEN URINE NEGATIVE (NEGATIVE)
[2019-02-14 00:04] LABS: *COCAINE SCREEN URINE NEGATIVE (NEGATIVE); CANNABINOID URINE SCREEN NEGATIVE (NEGATIVE); METHADONE URINE SCREEN NEGATIVE (NEGATIVE); PHENCYCLIDINE URINE SCREEN NEGATIVE (NEGATIVE)
[2019-02-14 00:12] LABS: OPIATES URINE SCREEN PRESUMTIVE POSITIVE (NEGATIVE)
[2019-02-14] MEDS ORDERED: NITROFURANTOIN 100MG M/M CAPSULE PO ONE (00:30)
[2019-02-14] MEDS ORDERED: NALOXONE HCL 1 MG/ML 2ML VIAL IV ONE (00:30)
[2019-02-14] MEDS ORDERED: ACETAMINOPHEN 325MG TABLET PO ONE (00:30)
[2019-02-14] MEDS ORDERED: ONDANSETRON 4MG ODT PO ONE (04:15)
[2019-02-14] MEDS ORDERED: NITROFURANTOIN 100MG M/M CAPSULE PO NR (05:15)
[2019-02-14] MEDS: ACETAMINOPHEN 325MG TABLET PO NR ×2 (05:51→06:51)
[2019-02-14 16:17] VITALS: BP 125/84
== END 2019-02-14 16:25 | disposition home or self-care (01) ==
LOC: ER 21:17
DX: T40.2X1A Poisoning by other opioids, accidental (unintentional), initial encounter (principal); R06.03 Acute respiratory distress; N30.00 Acute cystitis without hematuria; G89.29 Other chronic pain; M25.559 Pain in unspecified hip; R41.82 Altered mental status, unspecified; F17.200 Nicotine dependence, unspecified, uncomplicated; Z88.0 Allergy status to penicillin; Z79.899 Other long term (current) drug therapy; Y92.89 Other specified places as the place of occurrence of the external cause
CPT/HCPCS: 36415; 80053; 80305; 80307; 80320; 80329; 81003; 85025; 87086; 93005; 96374; 99284; J2310; J7030; Q0162; G0480